=== PATIENT | male | born 1970 | race Caucasian/White ===

== ENCOUNTER 2020-09-12 07:40 | Observation (INO) | payer BC ==
[~2020-09-12] VITALS: Ht 182.9 cm; Wt 77.1 kg
[2020-09-12] MEDS ORDERED: ASPIRIN 81 MG CHEW TAB PO ONE (08:00)
[2020-09-12 08:12] LABS: BASOPHILS # (AUTO) 0.1 (0.0-0.1); EOSINOPHILS # (AUTO) 0.1 (0.0-0.4); EOSINOPHILS % 2.2 % (0.0-6.0); HEMATOCRIT 53.3 % (38.2-49.6); LYMPHOCYTES # (AUTO) 1.6 (1.0-3.2); MEAN CORPUSCULAR HEMOGLOBIN 33.7 pg (28-32); MEAN CORPUSCULAR HGB CONC 35.6 g/dL (31-35); MEAN CORPUSCULAR VOLUME 94.5 fL (81-99); MONOCYTES # (AUTO) 0.6 (0.2-0.8); MONOCYTES % 12.3 % (4.4-11.3); NEUTROPHILS # (AUTO) 2.6 (2.1-6.9); NEUTROPHILS % 51.3 % (38.7-80.0); PLATELET COUNT 232 x10e3/uL (140-360); RED BLOOD COUNT 5.64 x10e6/uL (4.3-5.7); RED CELL DISTRIBUTION WIDTH 13.8 % (11.7-14.4)
[2020-09-12 09:03] LABS: PHENCYCLIDINE SCREEN,URINE NEGATIVE (NEGATIVE)
[2020-09-12 09:04] LABS: AMPHETAMINES SCREEN,URINE NEGATIVE (NEGATIVE); BENZODIAZEPINES SCREEN,URINE NEGATIVE (NEGATIVE)
[2020-09-12 09:13] LABS: ALANINE AMINOTRANSFERASE 27 IU/L (0-55); ALBUMIN 4.2 g/dL (3.5-5.0); ALBUMIN/GLOBULIN RATIO 1.4 (0.8-2.0); ALKALINE PHOSPHATASE 56 IU/L (40-150); ANION GAP 14.3 mmol/L (8-16); BLOOD UREA NITROGEN 11 mg/dL (7-26); BUN/CREATININE RATIO 12 (6-25); CALCIUM 9.2 mg/dL (8.4-10.2); CARBON DIOXIDE 26 mmol/L (22-29); CHLORIDE 103 mmol/L (98-107); CREATINE KINASE 69 IU/L (30-200); CREATININE, SERUM 0.94 mg/dL (0.72-1.25); EST GLOMERULAR FILTRATION RATE > 60 ML/MIN (60-); GLUCOSE 91 mg/dL (74-118); POTASSIUM 4.3 mmol/L (3.5-5.1); SODIUM 139 mmol/L (136-145)
[2020-09-12] MEDS ORDERED: SODIUM CHLORIDE 0.9% 100 ML ONE (09:19)
[2020-09-12] MEDS ORDERED: IOPAMIDOL 370 MG/ML 200 ML INFUS..BTL INJ ONE (09:20)
[2020-09-12 11:30] VITALS: BP 126/83
[2020-09-12 12:00] VITALS: BP 126/83
[2020-09-12 12:09] VITALS: BP 126/83
[2020-09-12 15:14] LABS: CREATINE KINASE 72 IU/L (30-200)
[2020-09-12 16:37] VITALS: BP 139/82
[2020-09-12] MEDS ORDERED: SODIUM CHLORIDE 0.9% 250ML 250 ML IV ONE ×2 (18:00→18:15)
[2020-09-12 20:00] VITALS: BP 126/81
[2020-09-12 20:31] VITALS: BP 139/82
[2020-09-12] MEDS ORDERED: AMLODIPINE-BEN1 EAC2 (22:16)
[2020-09-12] MEDS ORDERED: MELATONIN3 MG PO (22:17)
[2020-09-13] VITALS: BP 115/82
[2020-09-13 03:23] LABS: CREATINE KINASE 72 IU/L (30-200)
[2020-09-13 04:00] VITALS: BP 107/69
[2020-09-13 08:09] VITALS: BP 102/61
[2020-09-13 08:48] VITALS: BP 102/61
[2020-09-13 08:49] LABS: BASOPHILS # (AUTO) 0.1 (0.0-0.1); EOSINOPHILS # (AUTO) 0.1 (0.0-0.4); EOSINOPHILS % 1.8 % (0.0-6.0); HEMATOCRIT 50.8 % (38.2-49.6); LYMPHOCYTES # (AUTO) 1.3 (1.0-3.2); LYMPHOCYTES % 25.6 % (18.0-39.1); MEAN CORPUSCULAR HEMOGLOBIN 33.2 pg (28-32); MEAN CORPUSCULAR HGB CONC 35.4 g/dL (31-35); MEAN CORPUSCULAR VOLUME 93.7 fL (81-99); MONOCYTES # (AUTO) 0.5 (0.2-0.8); MONOCYTES % 9.6 % (4.4-11.3); NEUTROPHILS # (AUTO) 3.2 (2.1-6.9); NEUTROPHILS % 61.8 % (38.7-80.0); PLATELET COUNT 223 x10e3/uL (140-360); RED BLOOD COUNT 5.42 x10e6/uL (4.3-5.7); RED CELL DISTRIBUTION WIDTH 13.5 % (11.7-14.4)
[2020-09-13] MEDS ORDERED: ASPIRIN 325 MG TAB PO SCH (09:00)
[2020-09-13 09:34] LABS: FREE T4 (FREE THYROXINE) 0.93 ng/dL (0.8-1.8); THYROID STIMULATING HORMONE 1.179 uIU/mL (0.350-4.940)
[2020-09-13 09:46] LABS: ALANINE AMINOTRANSFERASE 23 IU/L (0-55); ALBUMIN/GLOBULIN RATIO 1.3 (0.8-2.0); ALKALINE PHOSPHATASE 52 IU/L (40-150); ANION GAP 15.2 mmol/L (8-16); BLOOD UREA NITROGEN 11 mg/dL (7-26); BUN/CREATININE RATIO 11 (6-25); CALCIUM 9.2 mg/dL (8.4-10.2); CARBON DIOXIDE 20 mmol/L (22-29); CHLORIDE 102 mmol/L (98-107); CREATININE, SERUM 0.96 mg/dL (0.72-1.25); EST GLOMERULAR FILTRATION RATE > 60 ML/MIN (60-); GLUCOSE 146 mg/dL (74-118); POTASSIUM 4.2 mmol/L (3.5-5.1); SODIUM 133 mmol/L (136-145)
[2020-09-13 11:29] LABS: CREATINE KINASE 71 IU/L (30-200)
[2020-09-13 11:55] VITALS: BP 139/94
== END 2020-09-13 14:00 | disposition home or self-care (01) ==
LOC: ER 07:44 → INTOOBSV 10:58 → ERHOLD 10:58 → MED/SURG3 11:16
PROVIDERS: ADMIT Internal Medicine; ATTEND Internal Medicine
DX: R55 Syncope and collapse (principal); I95.2 Hypotension due to drugs; D75.1 Secondary polycythemia; G45.9 Transient cerebral ischemic attack, unspecified; R53.83 Other fatigue; T38.7X5A Adverse effect of androgens and anabolic congeners, initial encounter; R42 Dizziness and giddiness; R29.6 Repeated falls; I10 Essential (primary) hypertension; Z88.5 Allergy status to narcotic agent; Z88.0 Allergy status to penicillin; Z20.822 Contact with and (suspected) exposure to COVID-19
CPT/HCPCS: 36415; 70450; 70496; 70498; 70551; 71045; 80053 ×2; 80061; 80307; 82550 ×2; 82553 ×2; 82607; 83090; 84439; 84443; 84484 ×2; 85025 ×2; 86039; 86431; 93005; 93306; 99195; 99284; G0378 ×2; J7050 ×2; Q9967; U0002